=== PATIENT | female | born 1950 | race Caucasian/White ===

== ENCOUNTER → 2021-04-04 | Outpatient (CLI) | payer MEDICARE, MEDICAID ==
[2021-04-04 08:32] LABS: ALBUMIN 4.1 g/dL (3.4-4.8)
[2021-04-04 08:33] LABS: CALCIUM 9.9 mg/dL (8.3-10.5)
[2021-04-04 08:35] LABS: TOTAL PROTEIN 7.2 g/dL (6.2-8.1)
[2021-04-04 08:37] LABS: TOTAL BILIRUBIN 0.5 mg/dL (0.2-1.2)
[2021-04-04 08:47] LABS: BASO # 0.07 (0.02-0.10); EOS # 0.48 (0.04-0.40); EOS % 5.5 % (1.0-5.0); HEMOGLOBIN 14.5 g/dL (12.5-16.0); LYMPH# 2.41 (1.50-4.00); MEAN CELL VOLUME 90 fl (78-100); MEAN CORPUSCULAR HEMOGLOBIN 30 pg (27-31); MEAN CORPUSCULAR HGB CONC 33 g/dL (33-37); MEAN PLATELET VOLUME 11.7 fl (7.4-10.4); MONO # 0.62 (0.20-0.80); NEU # 5.17 (1.40-6.50); PLATELET COUNT 288 K/mm3 (130-400); RED BLOOD COUNT 4.91 M/mm3 (4.10-5.30); WHITE BLOOD COUNT 8.8 K/mm3 (4.8-10.8)
== END ==
LOC: LAB 08:12
PROVIDERS: Family Medicine
DX: I10 Essential (primary) hypertension (principal)

== ENCOUNTER → 2023-09-06 | Outpatient (CLI) | payer MEDICARE, MEDICAID ==
[2023-09-06 09:53] LABS: CALCIUM 9.3 mg/dL (8.3-10.5)
== END ==
LOC: LAB 09:31
PROVIDERS: Family Medicine
DX: I10 Essential (primary) hypertension (principal)

== ENCOUNTER 2023-09-18 07:17 | Emergency (ER) | payer MEDICARE, MEDICAID ==
[~2023-09-18] VITALS: Ht 165.1 cm; Wt 67.7 kg
[2023-09-18] MEDS ORDERED: MELOXICAM7.5 MG PO (07:40)
[2023-09-18] MEDS ORDERED: LOSARTAN POTASS1 TA4 PO (07:40)
[2023-09-18] MEDS ORDERED: ESCITALOPRAM10 MG PO (07:40)
[2023-09-18] MEDS ORDERED: DESYREL 100MG100 MG PO (07:41)
[2023-09-18] MEDS ORDERED: ARTHRITIS PAIN650 M2 PO (07:42)
[2023-09-18] MEDS ORDERED: ATIVAN0.5 MG PO (07:44)
[2023-09-18] MEDS ORDERED: ZOFRAN ODT4 MG PO (07:45)
[2023-09-18] MEDS ORDERED: NIGHT-TIME COL300 ML PO (07:47)
[2023-09-18 08:01] LABS: BASO # 0.05 K/mm3 (0.02-0.10); EOS # 0.38 K/mm3 (0.04-0.40); EOS % 4.9 % (1.0-5.0); HEMATOCRIT 39.4 % (37.0-47.0); HEMOGLOBIN 12.9 g/dL (12.5-16.0); LYMPH# 2.29 K/mm3 (1.50-4.00); MEAN CELL VOLUME 93 fl (78-100); MEAN CORPUSCULAR HEMOGLOBIN 30 pg (27-31); MEAN CORPUSCULAR HGB CONC 33 g/dL (33-37); MEAN PLATELET VOLUME 11.2 fl (7.4-10.4); NEU # 4.38 K/mm3 (1.40-6.50); PLATELET COUNT 278 K/mm3 (130-400); RED BLOOD COUNT 4.25 M/mm3 (4.10-5.30); RED CELL DISTRIBUTION WIDTH 12.2 % (11.5-14.5); WHITE BLOOD COUNT 7.7 K/mm3 (4.8-10.8)
[2023-09-18 08:12] LABS: ALBUMIN 4.3 g/dL (3.4-4.8)
[2023-09-18 08:14] LABS: CALCIUM 9.5 mg/dL (8.3-10.5)
[2023-09-18 08:15] LABS: TOTAL PROTEIN 6.6 g/dL (6.2-8.1)
[2023-09-18 08:17] LABS: TOTAL BILIRUBIN 0.3 mg/dL (0.2-1.2)
[2023-09-18 09:32] LABS: URINE APPEARANCE CLEAR (CLEAR); URINE BILIRUBIN NEGATIVE (NEGATIVE); URINE BLOOD NEGATIVE (NEGATIVE); URINE COLOR YELLOW (YELLOW); URINE GLUCOSE NEGATIVE (NEGATIVE); URINE KETONE NEGATIVE (NEGATIVE); URINE LEUKOCYTE ESTERASE NEGATIVE (NEGATIVE); URINE NITRATE NEGATIVE (NEGATIVE); URINE PROTEIN(semi-quant) NEGATIVE (NEGATIVE)
[2023-09-18] MEDS ORDERED: PANTOPRAZOLE SO40 MG PO (09:46)
[2023-09-18 10:04] VITALS: BP 153/67
== END 2023-09-18 10:04 | disposition home or self-care (01) ==
LOC: ED 07:17
PROVIDERS: Family Medicine
DX: R10.13 Epigastric pain (principal)

== ENCOUNTER → 2024-05-03 | Outpatient (REF) | payer MEDICARE, OTHER ==
[~2024-05-03] MED LIST: ARTHRITIS PAIN650 M2 PO; ATIVAN0.5 MG PO; DESYREL 100MG100 MG PO; ESCITALOPRAM10 MG PO; LOSARTAN POTASS1 TA4 PO; MELOXICAM7.5 MG PO; NIGHT-TIME COL300 ML PO; PANTOPRAZOLE SO40 MG PO; ZOFRAN ODT4 MG PO
[2024-05-03 10:56] LABS: URINE APPEARANCE SLIGHTLY CLOUDY (CLEAR); URINE COLOR YELLOW (YELLOW); URINE GLUCOSE NEGATIVE (NEGATIVE); URINE PROTEIN(semi-quant) TRACE (NEGATIVE)
[2024-05-03 10:57] LABS: URINE BILIRUBIN 1+ (NEGATIVE); URINE BLOOD NEGATIVE (NEGATIVE); URINE KETONE NEGATIVE (NEGATIVE); URINE LEUKOCYTE ESTERASE NEGATIVE (NEGATIVE); URINE MUCUS PRESENT (NOT PRESENT); URINE NITRATE NEGATIVE (NEGATIVE)
== END ==
LOC: LAB 10:30
PROVIDERS: Family Medicine
DX: N39.0 Urinary tract infection, site not specified (principal)

== ENCOUNTER → 2024-06-23 | Outpatient (REF) | payer MEDICARE, OTHER ==
[2024-06-23 17:37] LABS: URINE APPEARANCE CLEAR (CLEAR); URINE BILIRUBIN NEGATIVE (NEGATIVE); URINE BLOOD NEGATIVE (NEGATIVE); URINE COLOR YELLOW (YELLOW); URINE GLUCOSE NEGATIVE (NEGATIVE); URINE KETONE NEGATIVE (NEGATIVE); URINE LEUKOCYTE ESTERASE NEGATIVE (NEGATIVE); URINE MUCUS PRESENT (NOT PRESENT); URINE NITRATE NEGATIVE (NEGATIVE); URINE PROTEIN(semi-quant) NEGATIVE (NEGATIVE); URINE WBC 0-1 /hpf (0-3)
== END ==
LOC: LAB 11:13
PROVIDERS: Family Medicine
DX: F01.B0 Vascular dementia, moderate, without behavioral disturbance, psychotic disturbance, mood disturbance, and anxiety (principal); N39.0 Urinary tract infection, site not specified